=== PATIENT | male | born 1975 | race African-American/Black ===

== ENCOUNTER 2020-02-09 08:51 | Emergency (ER) | payer SELFPAY ==
[~2020-02-09] VITALS: Ht 182.9 cm; Wt 72.0 kg
[2020-02-09] MEDS ORDERED: MORPHINE SULFATE 4 MG/ML CPJ (NOT FOR IM USE) IV STA (08:56)
[2020-02-09] MEDS ORDERED: ONDANSETRON HCL 4MG/2ML INJ IV STA (08:56)
[2020-02-09] MEDS ORDERED: TETANUS, DIPHTHERIA, PERTUSSIS VAC/PF 0.5ML (>7YR OLD) IM ONE (09:00)
[2020-02-09] MEDS ORDERED: SODIUM CHLORIDE 0.9% 1,000 ML IV ONE (09:00)
[2020-02-09] MEDS ORDERED: CEFAZOLIN 1000MG PREMIX 50 ML IV ONE (09:00)
[2020-02-09 09:17] LABS: BASOPHILS % 0.3 % (0.0-2.0); EOSINOPHILS % 0.1 % (0.0-5.0); HEMATOCRIT. 45.5 % (42.0-52.0); HEMOGLOBIN. 15.1 g/dL (14.0-18.0); LYMPHOCYTES % 24.2 % (20.0-50.0); MEAN CORPUSCULAR HEMOGLOBIN 30.8 pg (28.0-32.0); MEAN CORPUSCULAR VOLUME 92.8 fL (80.0-94.0); MONOCYTES % 6.3 % (2.0-8.0); NEUTROPHILS % 69.1 % (40.0-76.0); PLATELET 292 x1000/uL (130-400); RED CELL DISTRIBUTION WIDTH 14.8 % (11.6-14.6)
[2020-02-09 09:24] LABS: CHLORIDE 107 mEq/L (98-107)
[2020-02-09 09:28] LABS: ETHANOL BLOOD 71 mg/dL
[2020-02-09 09:29] LABS: PARTIAL THROMBOPLASTIN TIME 22.8 sec (23.4-31.0); PROTHROMBIN TIME 10.5 sec (9.6-11.0)
[2020-02-09 09:33] LABS: CREATINE KINASE 358 IU/L (39-308)
[2020-02-09 09:35] LABS: CREATINE KINASE MB FRACTION < 1.0 ng/mL (0.5-3.6)
[2020-02-09] MEDS ORDERED: MORPHINE SULFATE 4 MG/ML CPJ (NOT FOR IM USE) IV ONE (10:15)
[2020-02-09 12:08] VITALS: BP 144/88
== END 2020-02-09 12:27 | disposition short-term general hospital (02) ==
LOC: ER 09:04
DX: S82.832A Other fracture of upper and lower end of left fibula, initial encounter for closed fracture (principal); S82.892B Other fracture of left lower leg, initial encounter for open fracture type I or II; W22.8XXA Striking against or struck by other objects, initial encounter; Y93.89 Activity, other specified; Y92.89 Other specified places as the place of occurrence of the external cause; Y99.8 Other external cause status
CPT/HCPCS: 29515; 36415; 71045; 72170; 73590; 80053; 80320; 82550; 82553; 82962; 84484; 85025; 85610; 85730; 90471; 90715; 93005; 96365; 96375; 96376; 99285; J0690; J2270; J2405; J7030; G0480